=== PATIENT | male | born 1995 | race African-American/Black ===

== ENCOUNTER 2017-02-06 12:54 | Emergency (ER) | payer OTHER ==
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
[2017-02-06] MEDS ORDERED: PERC5TAB12 PO (18:20)
[2017-02-06] MEDS ORDERED: CYCL10TA PO (18:20)
[2017-02-06 18:29] VITALS: BP 129/78
== END 2017-02-06 18:31 | disposition home or self-care (01) ==
LOC: M ED 12:54
DX: S80.02XA Contusion of left knee, initial encounter (principal); S13.4XXA Sprain of ligaments of cervical spine, initial encounter; S23.3XXA Sprain of ligaments of thoracic spine, initial encounter; M51.26 Other intervertebral disc displacement, lumbar region; V43.52XA Car driver injured in collision with other type car in traffic accident, initial encounter; Y92.410 Unspecified street and highway as the place of occurrence of the external cause; Y93.9 Activity, unspecified; Y99.9 Unspecified external cause status

== ENCOUNTER 2017-03-23 08:14 | Emergency (ER) | payer OTHER ==
[2017-03-23] MEDS: NS 1,000 ML IV (08:30)
[2017-03-23 08:52] LABS: HEMATOCRIT 44.9 % (42.0-52.0); MEAN CORPUSCULAR HGB CONC 33.4 g/dl (32.0-36.5); PLATELET COUNT, AUTOMATED 287 10^3/uL (150-450); RED BLOOD COUNT 5.76 10^6/uL (4.30-6.10); RED CELL DISTRIBUTION WIDTH 13.2 % (11.5-14.5); WHITE BLOOD COUNT 11.2 10^3/uL (4.0-10.0)
[2017-03-23 09:14] LABS: ALBUMIN 4.4 GM/DL (3.2-5.2); ALBUMIN/GLOBULIN RATIO 1.52 (1.00-1.93); ALKALINE PHOSPHATASE 70 U/L (45-117); ALT/SGPT 41 U/L (12-78); ANION GAP 7 MEQ/L (8-16); AST/SGOT 26 U/L (7-37); BILIRUBIN,TOTAL 1.4 MG/DL (0.2-1.0); BLOOD UREA NITROGEN 13 MG/DL (7-18); CALCIUM LEVEL 9.5 MG/DL (8.5-10.1); CARBON DIOXIDE LEVEL 29 MEQ/L (21-32); CHLORIDE LEVEL 108 MEQ/L (98-107); CREATININE FOR GFR 1.14 MG/DL (0.70-1.30); GLUCOSE, FASTING 93 MG/DL (70-105); POTASSIUM SERUM 4.6 MEQ/L (3.5-5.1); SODIUM LEVEL 144 MEQ/L (136-145); TOTAL PROTEIN 7.3 GM/DL (6.4-8.2)
== END 2017-03-23 10:46 | disposition home or self-care (01) ==
LOC: M ED 08:14
DX: R55 Syncope and collapse (principal)
CPT/HCPCS: 93005

== ENCOUNTER → 2018-01-03 | Outpatient (CLI) | payer OTHER | LOC: M SMT 14:39 | DX: R06.00 Dyspnea, unspecified (principal) | CPT/HCPCS: 71046 ==

== ENCOUNTER → 2018-02-27 | Outpatient (CLI) | payer OTHER ==
[~2018-02-27] MED LIST: CYCL10TA PO; METHACHOLINE KIT (J7674) INH ONE; PERC5TAB12 PO
--- NOTE | 2018-02-27 15:11 | PFTRPT ---
Height: 68.00 Inches Weight: 171.00 Lbs BSA: 1.91 Diagnosis: R06.00 DATE OF PROCEDURE: 02/27/2018 ORDERING PROVIDER: ODALIS Carlos INTERPRETATION: Study of excellent technical quality. Under protocol, methacholine was administered. At a dose of 2.5 mg or 13.875 CDUs, a 34% decline in the FEV1 was noted. PC of 0.44 is significant. Flow rates returned to baseline post bronchodilator administration. IMPRESSION: Positive methacholine challenge study. MTDD
== END ==
LOC: M CARPUL 07:41
PROVIDERS: ATTEND Physician Assistant
DX: R06.00 Dyspnea, unspecified (principal)
CPT/HCPCS: 94070; J7674

== ENCOUNTER 2018-03-26 08:00 | Emergency (ER) | payer OTHER ==
[~2018-03-26] VITALS: Ht 172.7 cm; Wt 80.0 kg
[2018-03-26 08:00] VITALS: BP 130/82
[~2018-03-26 08:00] MED LIST changes: -METHACHOLINE KIT (J7674) INH ONE
[2018-03-26] MEDS ORDERED: FLUT11IN INH (08:05)
[2018-03-26] MEDS ORDERED: IPRATROPIUM 0.5MG/ALBUTEROL 2.5MG INH SOL UD 3ML (DUONEB)(J7620) NEB ONE (08:15)
[2018-03-26] MEDS ORDERED: ONDANSETRON 4 MG ORAL DISINTEGRATING TAB (Q0162 PER 1MG) PO ONE (08:15)
[2018-03-26] MEDS ORDERED: VENTAER INH (08:48)
[2018-03-26] MEDS ORDERED: ONDA4TAB6 PO (08:48)
== END 2018-03-26 09:12 | disposition home or self-care (01) ==
LOC: M ED 08:00
DX: J45.901 Unspecified asthma with (acute) exacerbation (principal)
CPT/HCPCS: 94640; 99283; Q0162

== ENCOUNTER 2019-01-04 07:51 | Emergency (ER) | payer OTHER ==
[~2019-01-04] VITALS: Ht 172.7 cm; Wt 80.0 kg
[~2019-01-04 07:51] MED LIST changes: +FLUT11IN INH; +ONDA4TAB6 PO; +VENTAER INH
[2019-01-04 08:32] LABS: BASO % 0.2 % (0.0-1.0); EOS % 0.3 % (0.0-3.0); HEMATOCRIT 44.3 % (42.0-52.0); HEMOGLOBIN 14.9 g/dl (13.5-17.5); LYMPH # 0.7 10^3/uL (1.5-5.0); MEAN CORPUSCULAR HEMOGLOBIN 26.4 pg (27.0-33.0); MEAN CORPUSCULAR HGB CONC 33.6 g/dl (32.0-36.5); MEAN CORPUSCULAR VOLUME 78.5 fl (80.0-96.0); MONO # 0.9 10^3/uL (0.0-0.8); MONO % 7.4 % (0.0-5.0); NEUTROPHILS # 10.2 10^3/uL (1.5-8.5); NEUTROPHILS % 85.7 % (36.0-66.0); PLATELET COUNT, AUTOMATED 264 10^3/uL (150-450); RED BLOOD COUNT 5.64 10^6/uL (4.30-6.10); WHITE BLOOD COUNT 11.9 10^3/uL (4.0-10.0)
[2019-01-04 08:45] VITALS: BP 142/79
[2019-01-04] MEDS ORDERED: IPRATROPIUM 0.5MG/ALBUTEROL 2.5MG INH SOL UD 3ML (DUONEB)(J7620) NEB ONE (08:45)
[2019-01-04 08:59] LABS: BLOOD UREA NITROGEN 13 MG/DL (7-18); CALCIUM LEVEL 9.4 MG/DL (8.5-10.1); CARBON DIOXIDE LEVEL 25 MEQ/L (21-32); CHLORIDE LEVEL 109 MEQ/L (98-107); CREATININE FOR GFR 1.08 MG/DL (0.70-1.30); GLOMERULAR FILTRATION RATE > 60.0 (>60); GLUCOSE, FASTING 76 MG/DL (70-100); POTASSIUM SERUM 4.1 MEQ/L (3.5-5.1); SODIUM LEVEL 143 MEQ/L (136-145)
--- NOTE | 2019-01-04 21:27 | ECGEPIP ---
[facility] - ED Test Date: 2019-01-04 Pat Name: JOIE MILES Department: Room: - Gender: Male [employer]: : 1995 Requested By: Marilee Worthington Order Number: [id number] Reading MD: Marilee Worthington Measurements Intervals [place] Rate: 75 P: 47 NV: 194 QRS: 11 QRSD: 101 T: 6 QT: 365 QTc: 408 Interpretive Statements SINUS RHYTHM POSSIBLE RIGHT VENTRICULAR CONDUCTION DELAY NONSPECIFIC T-WAVE ABNORMALITY DECREASED RATE 03/23/17 Electronically Signed on 01-04-2019 21:27:12 EDT by Marilee Worthington
== END 2019-01-04 10:40 | disposition home or self-care (01) ==
LOC: M ED 07:51 → EDBD 07:51 → M ED 10:40
DX: R55 Syncope and collapse (principal); J45.909 Unspecified asthma, uncomplicated